=== PATIENT | female | born 2000 | race Caucasian/White ===

== ENCOUNTER 2021-07-27 00:13 | Observation (INO) | payer BC ==
[~2021-07-27] VITALS: Ht 167.6 cm; Wt 79.6 kg
[2021-07-27] VITALS (10 sets, daily range): BP systolic 123–137; BP diastolic 55–73; PULSE 68–86; TEMP 98.4–99.1
[2021-07-27 01:22] LABS: COLLECTION METHOD CLEAN CATCH
[2021-07-27 01:25] LABS: BASO # 0.1 K/mm3 (0.0-0.2); BASO % 0.4 % (0.0-2.0); GRAN # 15.1 K/mm3 (1.4-6.5); GRAN % 89.4 % (42.2-75.2); HEMATOCRIT 38.2 % (35.0-45.0); HEMOGLOBIN 13.1 g/dl (12.0-15.0); LYMPH # 1.1 K/mm3 (1.2-3.4); LYMPH % 6.5 % (20.0-51.0); MEAN CELL VOLUME 83 fl (80.0-95.0); MEAN CORPUSCULAR HEMOGLOBIN 29 pg (26-32); MEAN CORPUSCULAR HGB CONC 34 g/dl (33.0-37.0); MEAN PLATELET VOLUME 9.9 fl (7.4-10.4); MONO # 0.5 K/mm3 (0.1-0.6); MONO % 3.2 % (1.7-9.3); PLATELET COUNT 329 K/mm3 (130-400); REDCELL DISTRIBUTION WIDTH-CV 12.1 % (11.5-14.5)
[2021-07-27 01:28] LABS: MUCOUS Present (NOT PRESENT); PH 6 (5-8); SQUAMOUS EPITHELIAL 0-2 /hpf (0-10); URINE APPEARANCE Hazy (CLEAR/HAZY); URINE BACTERIA Rare /hpf (NONE SEEN); URINE BILIRUBIN Negative (NEGATIVE); URINE BLOOD Negative (NEGATIVE); URINE COLOR Yellow (YELLOW); URINE GLUCOSE Negative (NEGATIVE); URINE KETONE 2+ (NEGATIVE); URINE LEUKOCYTE ESTERASE Negative (NEGATIVE); URINE NITRATE Negative (NEGATIVE); URINE PROTEIN(semi-quant) Negative (NEGATIVE); URINE UROBILINOGEN Negative (NEGATIVE)
[2021-07-27 01:41] LABS: ALBUMIN 4.2 gm/dL (3.5-5.0); BILIRUBIN,TOTAL 0.5 mg/dL (0.2-1.2); C-REACTIVE PROTEIN 0.53 mg/dL (0.00-0.50); CALCIUM 9.7 mg/dL (8.4-10.2); CREATININE, serum 0.83 mg/dL (0.57-1.11); POTASSIUM 4.5 mmol/L (3.5-4.5); TOTAL PROTEIN 7.6 gm/dL (6.2-8.1)
--- NOTE | 2021-07-27 05:18 | NUR ---
RECEIVED REPORT FROM Michelle CONNOLLY, STEFANIA. PATIENT ARRIVED TO ROOM 319 VIA W/C WITH PCT PRESENT TRANSPORTING PATIENT TO ROOM. PATIENT DENIES CHEST PAIN/SOA/NAUSEA OR PAIN AT THIS TIME. IV FLUIDS RUNNING WITH NO PROBLEMS.
[2021-07-27] MEDS ORDERED: BIRTH CONTROL PO (06:10)
--- NOTE | 2021-07-27 07:22 | NUR ---
CHANGE OF SHIFT REPORT GIVEN TO DAY SHIFT RNOZZIE. PATIENT'S PARENTS ARE PRESENT IN ROOM, PATIENT INFORMED OF TENTATIVE OR TIME FOR 0800. NO OTHER QUESTIONS OR CONCERNS REPORTED AT TIME OF REPORT. IV FLUIDS INFUSING WITH NO PROBLEMS.
--- NOTE | 2021-07-27 13:31 | NUR ---
SW met with pt, parent bedside to complete intake. The pt lives with roomates in a apartment. The pt next of kin is her mother, Mignon [phone] and reports she is independent on all ADLS and does not use any DME. The pt pcp is Dr. Harlan Saenz and gets her medications from [facility]. Pt not interested in DPOA-hc at this time. DC: Home with parents.
[2021-07-27] MEDS ORDERED: NORCO 325 MG-51 TAB PO (13:40)
--- NOTE | 2021-07-27 14:17 | NUR ---
Patient back from OR, laparoscopic appendectomy went well. Patient has 3 sites, all CDI w/ no drainage. Patient states pain is mild and she feels fine. Patient is A&Ox4, at her baseline. VSS and patient moving around in bed w/o any difficulty. Parents are at the bedside. Patient to remain on post-op vitals for the next few hours. Will advance diet as tolerated.
--- NOTE | 2021-07-27 18:26 | NUR ---
Patient received 1 dose of tylenol for pain, patient stated this did not help. Dr. Hernandez was contacted for a dose of toradol, 15mg dose was ordered and administered. This worked much better at relieving the patient's pain and patient felt ready to go home. VSS, patient tolerated PO intake well (food and water), patient ambulated w/o difficulty, and used the bathroom w/o difficulty. IV discontinued by this RN.
== END 2021-07-27 18:20 | disposition home or self-care (01) ==
LOC: COL.ER 00:13 → MEDICAL 03:47
PROVIDERS: Nurse Practitioner; ADMIT Surgery
DX: K35.80 Unspecified acute appendicitis (principal)
CPT/HCPCS: G0378; J1100; J1885; J1956; J2270; J2405; J2704; J3010; J7030; J7120; Q9967